=== PATIENT | female | born 1990 ===

== ENCOUNTER 2018-07-28 19:38 | Emergency (ER) | payer SELFPAY ==
[2018-07-28] MEDS ORDERED: Lactated Ringer's 1,000 ML IV ONE (20:54)
[2018-07-28 21:00] VITALS: BMI 34.0
[2018-07-28] MEDS ORDERED: Lactated Ringer's 1,000 ML IV SCH (21:00)
[2018-07-29 01:32] VITALS: BP 122/73; PULSE 100
--- NOTE | 2018-07-29 07:45 | OBHP ---
Datetime: 07/28/2018 21:16 IP Adm Impression: Term, intrauterine ; No Active Labor; Intact Membranes IP Admit Plan: Observation/Evaluation; Discharge home Admit Comment, IP Provider: Priyank community arts worker: #[id number] 28-year-old at 37.5 weeks (confirmed via LMP 11/06/2017) presents to the [facility] for one epis ode of vomitting and regular, minimal uterine contractions (every 15-20 minutes) that began at 3am, 1 7 hours prior to presentation. Vomitting was NBNB and only occurred once at noon, 8 hours prior to pr esentation. Since then she has not attempted to eat anything as she reports being nauseous all day. S he reports good movement and denies vaginal bleeding. Patient feels that she has leaked a small amount of urination multiple times today but denies a gush of fluid. She is a [facility] patient and was la st seen yesterday, 07/[address] Kapoor and has a follow up ultra sound tomorrow, 07/29. has be en complicated by GDM, well-controlled with diet (glucose logs reviewed). She has one previous full-t erm NVD of which she recovered well and one in 2011. She denies dizziness, headache, change in vision, chest pain, diarrhea, constipation and urinary symptoms. She admits to nausea all day and some shortness of breath upon lying flat, which resolves when she sits at an incline. Primary OBGYN: [facility] - Dr Kapoor PMH: GDM this - diet controlled Family Hx: Mother DM, Father HTN Social: denies alcohol, illicit drugs, tobacco Surgical Hx: denies Allergies: denies Meds: denies, daily PNV OBHx: LMP 11/06/2017, every 28 days, 5 days average blood loss. 1 x medical 2011. ROS: as per HPI. PE: in no acute distress, lying comfortably in bed CV: RRR Resp: no respiratory distress, good bilateral air entry Abd: no tenderness to palpation, no rebound tenderness, negative carpenter's sign Back: no CVA tenderness or tenderness to palpation Extremities: no pitting edema Pelvic: Salvage Supervisor present - Dr Reaves - 1cm/0/+3. No lesions noted exteriorly. Assessment: 28-year-old at 37.5 weeks presents to the [facility] for one episode of vomitting an d regular uterine contractions (every 15-20 minutes). Plan: -Observation: EFM - FHR 150, moderate variablility, accelerations present 15x15, no decelerations, Category I tracing -Patient not in active labor, cleared for discharged to home. -Advised patient to continue to hydrate via fluids -Patient advised to return if any decrease in movement, increase in intensity or frequency o f uterine contractions or loss of large gush of fluid. Case discussed and seen with Dr. Jean Paul Renteria, PGY1 Ob hospitalist on-call. With PGY1, i saw this pt. Agree with note...37w; GDMA1 (controlled); no acute abdomen; just nausea.... mahndo Pelvic Type - PN: Adequate Extremities - PN: Normal Abdomen - PN: Normal Back - PN: Not Done Breast - PN: Not Done Lungs - PN: Normal Heart - PN: Normal Thyroid - PN: Not Done Neurologic - PN: Not Done General - PN: Normal FHR - Baseline A Provider: 150 EGA AdmitDate IP: 37.5 Vital Signs Provider: Reviewed; Within Normal Limits IP Chief Complaint: Uterine contractions; Illness NICHD Variability Prov Fetus A: Moderate 6-25bpm NICHD Accel Fetus A IP Provider: 15X15 FHR Category Provider Fetus A: Category I NICHD Decel Fetus A IP Provider: None Dilatation, Provider: 1 Effacement, Provider: 0 Station, Provider: 3 Genitourinary Exam: Not Done DTRs - PN: Not Done
--- NOTE | 2018-07-29 07:45 | OBDCSUM ---
Datetime: 07/28/2018 20:47 Discharged to, Provider: Home Follow up at, Provider: [facility] Disch Instr Activity: Normal activity Disch Instr Diet: Regular Discharge Diagnosis, Provider: False Labor - Undelivered Discharge Time: 07/28/2018 20:47 Follow up in weeks, Provider: 07/29/2018 Disch Referrals: None Disch Activity Restrictions: No lifting
== END 2018-07-28 20:00 | disposition home or self-care (01) ==
LOC: H.EROB2 19:38
DX: O21.0 Mild hyperemesis gravidarum (principal); O26.93 Pregnancy related conditions, unspecified, third trimester; R10.2 Pelvic and perineal pain; Z3A.37 37 weeks gestation of pregnancy; O47.1 False labor at or after 37 completed weeks of gestation

== ENCOUNTER 2018-08-03 02:20 | Inpatient (IN) | payer MEDICAID, SELFPAY ==
[2018-08-03 03:07] VITALS: BMI 32.2
[2018-08-03] MEDS: Lactated Ringer's 1,000 ML IV SCH ×2 (03:30→04:27)
[2018-08-03 04:02] LABS: BASO # 0.1 K/uL (0.0-0.2); BASO % 0.5 % (0.0-2.0); EOS # 0.1 K/uL (0.0-0.7); EOS % 0.8 % (0.0-4.0); HEMOGLOBIN 14.2 g/dL (12.0-16.0); LYMPH # 3.4 K/uL (1.0-4.3); LYMPH % 29.5 % (20.0-40.0); MEAN CELL VOLUME 86.8 fl (81.0-99.0); MEAN CORPUSCULAR HEMOGLOBIN 29.3 pg (27.0-31.0); MEAN CORPUSCULAR HGB CONC 33.7 g/dL (33.0-37.0); MEAN PLATELET VOLUME 8.5 fl (7.2-11.7); MONO # 0.7 K/uL (0.0-0.8); MONO % 5.8 % (0.0-10.0); NEUT # 7.3 K/uL (1.8-7.0); NEUT % 63.4 % (50.0-75.0); NRBC % 0.1 % (0.0-0.0); RBC 4.85 Mil/uL (3.80-5.20); RED CELL DISTRIBUTION WIDTH 14.3 % (11.5-14.5); WHITE BLOOD COUNT 11.5 K/uL (4.8-10.8)
[2018-08-03 04:08] LABS: ALB/GLOB RATIO 1.1 (1.0-2.1); ALBUMIN 3.9 g/dL (3.5-5.0); ALT/SGPT 21 U/L (9-52); AST/SGOT 21 U/L (14-36); BLOOD UREA NITROGEN 8 mg/dl (7-17); CALCIUM 9.4 mg/dL (8.4-10.2); GFR NON-AFRICAN AMERICAN > 60
--- NOTE | 2018-08-03 04:08 | OBADHP ---
Datetime: 08/03/2018 04:03 Admit Comment, IP Provider: Patient is a @ 38.4 wks presenting with contractions, no vaginal bleeding, no leaking, +FM. History of GDMA1, well controlled with diet. Previous x 1. Otherwise no problems, no medical problems, no medications taking, no allergies VE=5//-1 LAG=009 mod sara, +accels, no decels TOCO = ctxning q 1-5 mins A/P 1. Patient in active labor - will admit pt to unit, IV fluids, CBC, type and screen 2. patient would like epidural for pain management 3. CEFM and TOCO 4. Re-evaluate as needed Pelvic Type - PN: Adequate Extremities - PN: Normal Abdomen - PN: Normal Back - PN: Normal Breast - PN: Normal Lungs - PN: Normal Heart - PN: Normal Thyroid - PN: Normal Neurologic - PN: Normal HEENT - PN: Normal General - PN: Normal FHR - Baseline A Provider: 150 Contraction Comments Provider: Ctxns q 1-5 mins Vital Signs Provider: Reviewed; Within Normal Limits IP Chief Complaint: Uterine contractions NICHD Variability Prov Fetus A: Moderate 6-25bpm NICHD Decel Fetus A IP Provider: None Dilatation, Provider: 5 Effacement, Provider: 100 Station, Provider: -1 Genitourinary Exam: Normal DTRs - PN: Normal EGA AdmitDate IP: 38.4 IP Adm Impression: Term, intrauterine IP Admit Plan: Admit to unit; Initiate labor augmentation protocol Datetime: 07/28/2018 21:16 NICHD Accel Fetus A IP Provider: 15X15 FHR Category Provider Fetus A: Category I
[2018-08-03] MEDS ORDERED: Fentanyl/Bupivacaine HCl 250 ML EPI ONE (04:30)
[2018-08-03] MEDS ORDERED: Lactated Ringer's 1,000 ML IV SCH (05:15)
[2018-08-03] MEDS ORDERED: Oxytocin 30 UNIT 30 UNITS/500 ML BAG IV ONE (07:55)
[2018-08-03] MEDS ORDERED: Lidocaine 2% PF (10 ml) Amp ONE (07:57)
[2018-08-03] MEDS ORDERED: OXYTOCIN/0.9 % NS 20 UNIT/1,000 ML BAG IV SCH (08:00)
--- NOTE | 2018-08-03 08:12 | OBPN ---
Datetime: 08/03/2018 08:03 IP Progress Impression: Normal progression of labor IP Informed Consent Obtain: Vaginal Delivery IP Procedures: Sterile Vag Exam IP Progress Plan: Continue present management Membranes, Provider: Ruptured Contraction Comments Provider: q 1-5 FHR - Baseline A Provider: 150 IP Progress Note Comment: Patient comfortable s/p epidural VE=8/100/0 FHR= 150 mod sara, +accels, no decels TOCO = ctxning q 3-5 mins A/P 1. Patient progressing well 2. CEFm and TOCo 3. Re-evaluate as needed Vital Signs Provider: Reviewed; Within Normal Limits NICHD Variability Prov Fetus A: Moderate 6-25bpm Dilatation, Provider: 8 Effacement, Provider: 100 Datetime: 08/03/2018 04:03 Station, Provider: -1 NICHD Decel Fetus A IP Provider: None Datetime: 07/28/2018 21:16 NICHD Accel Fetus A IP Provider: 15X15 FHR Category Provider Fetus A: Category I
[2018-08-03] MEDS ORDERED: Lidocaine 1% 20 MG/2 ML PF AMP ONE (09:21)
[2018-08-03] MEDS ORDERED: Benzocaine/Menthol SPRAY TOP PRN (11:46)
--- NOTE | 2018-08-03 12:14 | OBDS ---
DELIVERY PERSONNEL Nurse Aesthetics Instructor Certified: johny Delivery Doctor: Linette Smith MD Scrub Nurse: johny Wheel Setter: ALBA Raya;ALBA Haile;TIANA Andres Anesthesiologist: Sarthak Glez MD Plant Maintenance Manager: johny Resident: Dr Lind MATERNAL INFORMATION Delivery Anesthesia: Epidural Medications in Delivery: pitocin Estimated Blood Loss (ml): 250cc Placenta Cultured: No RN Comments: to alive baby boy;apgar9/9;with complete delivery of placenta;laceration repaired; uneventful delivery Provider Comments: Pt progressed to complete and pushed to deliver a viable male throught blo od-stained fluid in direct OP position. Apgars 9 and 9. Wt 3545 gms, 7#13. Cord doubly clamped aft er delayed cord clamping. FOB cut the cord. Cord blood collected. Placenta delivered sponataneousl y intact w/ a 3vc at 11:35am. Left periurethral tear reapproximated w/ 2 interrupted stitches of 3- 0 rapide and 1st degree tear reapproximated w/ a single interrupted stitch of 3-0 rapide. Rectum int act. Pt and baby tolerated the procedure well. EBL 250mL LABOR SUMMARY EDC: 08/13/2018 00:00 No. Babies in Womb: 1 Attempted: No Labor Anesthesia: Epidural LABOR INFORMATION Onset of Labor: 08/04/2018 03:00 Complete Dilatation: 08/03/2018 11:10 Other Ripening Agents: na Oxytocin: N/A Group B Beta Strep: Negative Antibiotics # of Doses: 0 Antibiotics Time of Last Dose: 0 Steroids Given: None Reason Steroids Not Administered: Not Applicable MEMBRANES Membranes Rupture Method: Spontaneous Rupture of Membranes: 08/03/2018 07:50 Length of Rupture (hrs): 3.72 Amniotic Fluid Color: Clear Amniotic Fluid Amount: Moderate Amniotic Fluid Odor: Normal STAGES OF LABOR Stage 1 hrs: -15 Stage 1 min: -50 Stage 2 hrs: 0 Stage 2 min: 23 Stage 3 hrs: 0 Stage 3 min: 2 Total Time in Labor hrs: -15 Total Time in Labor min: -25 VAGINAL DELIVERY Episiotomy: None Laceration Extension: First Degree Laceration Type: Vaginal Other Laceration: left periurethral laceration Laceration Repair: Yes Initial Vag Sponge Count: 6 Final Vag Sponge Count: 6 Initial Vag Sharps Count: 1 Final Vag Sharps Count: 1 Sponge Count Correct: Yes Sharps Count Correct: Yes Count Comment: all count correct BABY A INFORMATION Delivery Date/Time: 08/03/2018 11:33 Method of Delivery: Vaginal Born in Route : No : N/A Forceps: N/A Vacuum Extraction: N/A Shoulder Dystocia : No SHOULDER DYSTOCIA BABY A Delivery Date/Time: 08/03/2018 11:33 PRESENTATION/POSITION BABY A Presentation: Cephalic Cephalic Presentation: Vertex Vertex Position: Right Occipital Posterior Breech Presentation: N/A PLACENTA INFORMATION BABY A Placenta Delivery Time : 08/03/2018 11:35 Placenta Method of Delivery: Spontaneous Placenta Status: Delivered SCORES BABY A Heart Rate 1 min: >100 bpm Resp Effort 1 min: Good Cry Reflex Irritability 1 min: Cough or Sneeze or Pulls Away Muscle Tone 1 min: Active Motion Color 1 min: Body [place], Extremities Blue SCORE 1 MIN: 9 Heart Rate 5 min: >100 bpm Resp Effort 5 min: Good Cry Reflex Irritability 5 min: Cough or Sneeze or Pulls Away Muscle Tone 5 min: Active Motion Color 5 min: Body [place], Extremities Blue SCORE 5 MIN: 9 INFORMATION BABY A Gestational Age at Delivery: 38.4 Gestational Status: Term Outcome : Liveborn Condition : Stable Infant Sex: Male IDENTIFICATION/MEDS BABY A ID Band Number: [id number] ID Band Location: Left Leg; Left Arm WEIGHT/LENGTH BABY A Infant Birthweight (gms): 3545 Infant Weight (lb): 7 Weight (oz): 13 Infant Length Inches: 21.50 Infant Length cms: 54.6 CORD INFORMATION BABY A No. Cord Vessels: 3 Nuchal Cord : N/A Nuchal Cord Other: na True Knot: na Cord pH Baby Arterial: na Infant Cord pH Baby Venous: na Cord Blood Taken: Yes Banking/Donate Info: na Infant Suction: None
[2018-08-04 06:34] LABS: BASO % 0.5 % (0.0-2.0); EOS # 0.1 K/uL (0.0-0.7); EOS % 0.9 % (0.0-4.0); HEMOGLOBIN 10.7 g/dL (12.0-16.0); LYMPH # 3.3 K/uL (1.0-4.3); LYMPH % 33.5 % (20.0-40.0); MEAN CELL VOLUME 87.6 fl (81.0-99.0); MEAN CORPUSCULAR HEMOGLOBIN 30.2 pg (27.0-31.0); MEAN CORPUSCULAR HGB CONC 34.5 g/dL (33.0-37.0); MEAN PLATELET VOLUME 7.9 fl (7.2-11.7); MONO # 0.5 K/uL (0.0-0.8); MONO % 5.3 % (0.0-10.0); NEUT # 5.9 K/uL (1.8-7.0); NEUT % 59.8 % (50.0-75.0); RBC 3.55 Mil/uL (3.80-5.20); RED CELL DISTRIBUTION WIDTH 14.1 % (11.5-14.5); WHITE BLOOD COUNT 9.8 K/uL (4.8-10.8)
--- NOTE | 2018-08-04 08:43 | OBPPN ---
Datetime: 08/04/2018 06:01 PP Pain Prov: Within normal limits PP Nausea Prov: Denies PP Flatus Prov: Yes PP BM Prov: No PP Breasts Prov: Not Done PP Heart Prov: Normal PP Lungs Prov: Normal PP Abdomen/Uterus Prov: Normal PP Lochia Prov: Normal PP Vulva/Perineum Prov: Normal PP CVA Tenderness Prov: Normal PP Extremities Prov: Normal PP C/S Incision Prov: Not Applicable PP Progress Prov: Normal PP Impression Prov: Normal progression PP Plan Prov: Continue present management PP Progress Note Prov: S: 28 yo female @ 38.4 wks- normal vaginal delivery on 08/03/18 being evaluated on PPD1. Pt had no acute events overnight. Pain is tolerated with medication, she has no c omplaints today. She was able ambulate and void freely. Pt states that she have passed gas, but osbaldo es BM. Lochia is equal to menses. She is and using formula. PT denies fever, chills, d iarrhea, nausea/vomiting, chest pain, dyspnea, and dizziness. O: VS: Stable, WNL GEN: NAD Cardio: S1S2, no murmurs or extra heart sound Lungs: clear air entry bilaterally, no wheezes, rhonchi or crackles. Abdomen: BS+, mildly tender, fundus at umbilicus, firm. EXT: No edema, calves non-tender NEURO/PSYCH: AAOx3, no grossly focal deficits, preserved affect and mood. H/H (post ): Pending Assessment/Plan: 28 yo female 38.4 normal vaginal delivery on 08/03/18 being evaluated on PPD1. Pt remains afebrile, tolerating pain with medication. Tolerating diet. Anticipating discharge 1 . Continue with current management Encourage and ambulating Continue Ibuprofen 600mg q6 for mild-moderate pain. Keep monitoring lochia, fundus and vitals F/U blood screen. - Follow up [facility] (must be within 72 hours from delivery) Anticipate discharge 08/05/18. F/U Appointment with Dr. Kapoor in [facility] 09/16/18 - @ 1p.m. Taty Hayward, PGY-1 Family Medicine OB Hospitalist on-call. On ronuds, I saw this patient...agree with PGY1 note MAHNDO Rh neg IP PP Procedures: None Vital Signs Provider PP: Reviewed; Within Normal Limits
[2018-08-04] MEDS ORDERED: Influenza Vaccine (5 YR UP)/PF 60 MCG/0.5 ML SYR IM ONE (10:00)
[2018-08-04] MEDS: Benzocaine/Menthol SPRAY TOP PRN (21:53)
[2018-08-05] MEDS: Benzocaine/Menthol SPRAY TOP PRN (09:00)
--- NOTE | 2018-08-05 09:56 | OBPPN ---
Datetime: 08/05/2018 08:00 PP Pain Prov: Within normal limits PP Nausea Prov: Denies PP Flatus Prov: Yes PP BM Prov: No PP Breasts Prov: Not Done PP Heart Prov: Normal PP Lungs Prov: Normal PP Abdomen/Uterus Prov: Normal PP Lochia Prov: Normal PP Vulva/Perineum Prov: Not Done PP CVA Tenderness Prov: Normal PP Extremities Prov: Normal PP C/S Incision Prov: Not Applicable PP Progress Prov: Normal PP Impression Prov: Normal progression PP Plan Prov: Discharge PP Progress Note Prov: S: 28 yo s/p NVD on 08/03/2018 at 11:33. Pt. is seen and examined at bedside this AM. No significant overnight events. Pt reports occasional abdominal pain, but well cont rolled with pain meds. Pt is ambulating without any difficulties. Breast feeding baby. Tolerating PO diet. Lochia is similar to light menses in volume. Voiding freely, no bowel movement, but passing gas per rectum. Denies fever, chills, diarrhea, nausea, vomiting, chest pain, dyspnea, and dizziness. O: VS: stable GEN: NAD Cardio: S1S2, no M/G/R Resp: clear breath sounds b/l Abdomen: BS+, NT, Uterus is firm and at the level of the umbilicus. EXT: No edema, calves nontender NEURO/PSYCHI: AAOx3, no grossly focal deficit, preserved affect and mood. Assessment/Plan: 28 yo s/p NVD on 08/03/2018 at 11:33. Pt remains afebrile, tolerating mary n with medication, tolerating PO intake, doing well on PPD2. OOB with caution pt ambulating Ibuprofen 600mg for pain. Encourage and ambulating F/u CBC post-delivery: .1 Anticipated d/c to home, 08/05/2018. Case dw OB attending --- Reuben Kapoor MD PGY- Patient seen and examined by me this am. Agree with above note. --Dr. Esparza IP PP Procedures: None Vital Signs Provider PP: Reviewed; Within Normal Limits
[2018-08-05 16:39] VITALS: BP 115/56; PULSE 111; RESP 19; TEMP 98.2; O2SAT 100
== END 2018-08-05 11:45 | disposition home or self-care (01) | DRG 807 ==
LOC: H.EROB2 02:20 → H.L&D 03:27 → H.OB/GYN 14:30
PROVIDERS: ADMIT Obstetrics & Gynecology; ATTEND Obstetrics & Gynecology
PROC: 10E0XZZ Delivery of Products of Conception, External Approach (ICD-10-PCS; principal; 2018-08-03)
PROC: 0UQMXZZ Repair Vulva, External Approach (ICD-10-PCS; 2018-08-03)
PROC: 0HQ9XZZ Repair Perineum Skin, External Approach (ICD-10-PCS; 2018-08-03)
PROC: 3E0334Z Introduction of Serum, Toxoid and Vaccine into Peripheral Vein, Percutaneous Approach (ICD-10-PCS; 2018-08-03)
PROC: 4A1HXCZ Monitoring of Products of Conception, Cardiac Rate, External Approach (ICD-10-PCS; 2018-08-03)
DX: O36.0930 Maternal care for other rhesus isoimmunization, third trimester, not applicable or unspecified (principal); O71.82 Other specified trauma to perineum and vulva; O70.0 First degree perineal laceration during delivery; Z37.0 Single live birth; Z3A.38 38 weeks gestation of pregnancy; Z86.32 Personal history of gestational diabetes